=== PATIENT | female | born 2000 | race African-American/Black ===

== ENCOUNTER 2020-02-09 00:21 | Emergency (ER) | payer MEDICAID ==
[~2020-02-09] VITALS: Ht 167.6 cm; Wt 123.9 kg
[2020-02-09 00:26] VITALS: BP 143/104
[2020-02-09] MEDS ORDERED: KETOROLAC 30 MG/1 ML ONE (01:21)
[2020-02-09] MEDS ORDERED: KETOROLAC 30 MG/1 ML IM ONE (01:30)
== END 2020-02-09 01:47 | disposition home or self-care (01) ==
LOC: ED 01:10
DX: M79.671 Pain in right foot (principal); M79.672 Pain in left foot
CPT/HCPCS: 96372; 99283; J1885

== ENCOUNTER 2020-02-20 09:33 | Emergency (ER) | payer MEDICAID ==
[~2020-02-20] VITALS: Ht 167.6 cm; Wt 122.9 kg
[2020-02-20 09:50] VITALS: BP 154/83
--- NOTE | 2020-02-20 10:00 | NUR ---
pt asked to change into gown. noah
--- NOTE | 2020-02-20 10:04 | NUR ---
20 Y/O FEMALE PRESENTS TO ED WITH C/O BILATERAL FOOT AND HAND PAIN. PER PT "I WAS HERE BEFORE WITH SOME PAIN IN MY FEET. THERE WAS LUMPS LIKE ROCKS. NOW IT'S IN MY HANDS. I SAW MY PCP AND THEY WANTED ME TO GET LABS, BUT I HAVEN'T GOTTEN THEM YET. " NADN.
[2020-02-20] MEDS ORDERED: KETOROLAC 30 MG/1 ML ONE (10:08)
[2020-02-20] MEDS ORDERED: KETOROLAC 30 MG/1 ML IM ONE (10:30)
[2020-02-20 10:50] LABS: BASOPHILS # (AUTO) 0.02 x10^3/uL (0-0.1); BASOPHILS % (AUTO) 0 % (0-1); EOSINOPHILS # (AUTO) 0.05 x10^3/uL (0-0.4); EOSINOPHILS % (AUTO) 1 % (1-7); LYMPHOCYTES # (AUTO) 1.23 x10^3/uL (1-3.4); LYMPHOCYTES % (AUTO) 14 % (22-44); MD NO; MEAN CORPUSCULAR HEMOGLOBIN 28.1 pg (27.0-34.8); MEAN CORPUSCULAR HGB CONC 32.1 g/dL (32.4-35.8); MEAN PLATELET VOLUME 8.9 fL (7.4-10.4); MONOCYTES # (AUTO) 0.38 x10^3/uL (0.2-0.8); MONOCYTES % (AUTO) 4 % (2-9); NEUTROPHILS # (AUTO) 7.44 x10^3/uL (1.8-6.8); NEUTROPHILS % (AUTO) 82 % (42-75); PLATELET COUNT 252 x10^3/uL (130-400); RED BLOOD COUNT 4.25 x10^6/uL (3.82-5.3); RED CELL DISTRIBUTION WIDTH 15.1 % (9.6-15.2)
[2020-02-20 11:00] LABS: ALANINE AMINOTRANSFERASE 170 U/L (12-78); ALBUMIN 3.2 g/dL (3.4-5.0); ANION GAP 6 mmol/L (5-15); CALCIUM 8.4 mg/dL (8.5-10.1); CHLORIDE 112 mmol/L (98-107); CREATININE 0.68 mg/dL (0.55-1.02)
[2020-02-20 11:05] LABS: ALKALINE PHOSPHATASE 26 U/L (45-117); BILIRUBIN,TOTAL 0.3 mg/dL (0.2-1.0)
--- NOTE | 2020-02-20 11:38 | NUR ---
Patient/Caregiver given discharge instructions and they have confirmed that they understand the instructions. Patient ambulatory with steady gait. pt left with all personal belongings.
== END 2020-02-20 11:41 | disposition home or self-care (01) ==
LOC: ED 10:09
DX: G89.29 Other chronic pain (principal); M79.671 Pain in right foot; M79.672 Pain in left foot; M79.642 Pain in left hand; M79.641 Pain in right hand
CPT/HCPCS: 36415; 80053; 84443; 84703; 85025; 96372; 99283; J1885

== ENCOUNTER 2020-04-20 21:23 | Emergency (ER) | payer MEDICAID ==
[~2020-04-20] VITALS: Ht 167.6 cm; Wt 125.7 kg
[2020-04-20 21:31] VITALS: BP 149/95
== END 2020-04-20 23:57 | disposition home or self-care (01) ==
LOC: ED 23:51
DX: I80.8 Phlebitis and thrombophlebitis of other sites (principal); L50.9 Urticaria, unspecified
CPT/HCPCS: 99283